=== PATIENT | female | born 1990 | race Caucasian/White ===

== ENCOUNTER → 2016-09-07 | Outpatient (CLI) | payer OTHER, BC ==
[~2016-09-07] MED LIST: MOTRIN-DPS800 MG PO; NIPPLECREAM TP; PRENATAL VITAM1 EAC4 PO; TYLENOL EXTRA500 M1 PO
== END | disposition home or self-care (01) ==
LOC: RAD.S 11:00
DX: Z36 Encounter for antenatal screening of mother (principal); Z3A.20 20 weeks gestation of pregnancy

== ENCOUNTER → 2016-09-28 | Outpatient (CLI) | payer OTHER, BC | END | disposition home or self-care (01) | LOC: RAD.S 16:30 | DX: Z36 Encounter for antenatal screening of mother (principal); Z3A.23 23 weeks gestation of pregnancy ==